=== PATIENT | male | born 1955 | race Caucasian/White ===

== ENCOUNTER 2019-03-13 06:05 | Day surgery (SDC) | payer OTHER ==
[~2019-03-13] VITALS: Ht 185.4 cm; Wt 84.4 kg
[2019-03-13] VITALS (16 sets, daily range): BP systolic 104–146; BP diastolic 65–94; PULSE 50–62; RESP 12–27; Ht 185.4 cm; Wt 84.4 kg
[~2019-03-13 06:05] MED LIST: DIAZ10TA4 PO; HYDR-580; TEMA15CA PO; VICES PO; [UNRECOGNIZED DRUG - REMARK]
--- NOTE | 2019-03-13 07:15 | PREAC ---
Date/Time of Note Date/Time of Note DATE: 03/13/19 TIME: 07:13 Anesthesia Eval and Record Evaluation Time Pre-Procedure Interview DATE: 03/13/19 TIME: 07:13 Age 63 Sex male NPO: 8 hrs Preoperative diagnosis neck mass, left arm Planned procedure excision post neck mass and left arm Past Medical History Past Medical History: None Surgery & Anesthesia Issues No known issue Meds Anticoagulation: No Beta Gibson within 24 hr: No Reason Beta Gibson not given: Pt. not on B-Gibson Reported Medications Acetaminophen/Hydrocodone (Vicodin Es) 1 Tab Tab, 1 TAB PO QID PRN 06/01/11 [Marvana] No Conflict Check 06/01/11 Temazepam* (Temazepam*) 15 Mg Capsule, 15 MG PO HS 04/16/11 Diazepam* (Diazepam*) 10 Mg Tablet, 10 MG PO DAILY 04/16/11 Hydrocodone Bit-Acetaminophen (Phillips) 1 Tab Tablet 12/23/10 Meds reviewed: Yes Allergies Coded Allergies: ibuprofen (Unverified Allergy, Unknown, ABD CRAMPS, 03/13/19) Allergies Reviewed: Yes Labs/Studies Labs Reviewed: Reviewed by anesthesiologist test: N/A Studies: ECG (sr), CXR (nl) Pre-procedure Exam Last vitals Vital Signs Date Temp Pulse Resp B/P (MAP) Pulse Ox O2 O2 Flow FiO2 Time Delivery Rate 03/13/19 97.5 57 18 116/75 96 Room Air 07:06 (89) Airway: Adequate mouth opening Mallampati: Mallampati I Teeth: Normal Lung: Normal Heart: Normal ASA Physical Status ASA physical status: 1 Emergency: None Planned Anesthetic General/MAC: LMA Planned Pain Management Parenteral pain med Pre-operative Attestations Prior to commencing anesthesia and surgery, the patient was re-evaluated, there was verification of: *The patient's identity *The results of appropriate recent lab work and preoperative vital signs *The above evaluation not changing prior to induction *Anesthetic plan, risk benefits, alternative and complications discussed with patient/family; questions answered; patient/family understands, accepts and wishes to proceed. PATRICK OVALLES MD Mar 13, 2019 07:15
[2019-03-13] MEDS ORDERED: MIDAZOLAM 1 MG/ML 2 ML INJ ONE (07:26)
[2019-03-13] MEDS ORDERED: METOCLOPRAMIDE 10 MG INJ ONE (07:26)
[2019-03-13] MEDS ORDERED: PROPOFOL 20 ML ONE ×2 (07:26→07:46)
[2019-03-13] MEDS ORDERED: CEFAZOLIN 1 GM INJ ONE (07:26)
[2019-03-13] MEDS ORDERED: ONDANSETRON 4 MG INJ ONE (07:26)
[2019-03-13] MEDS ORDERED: FENTAnyl 50 MCG/ML VIAL ONE (07:26)
[2019-03-13] MEDS ORDERED: DESFLURANE 15 MIN ONE (07:26)
[2019-03-13] MEDS ORDERED: BUPIVACAINE 0.25% (MPF) 30 ML INJ ONE (07:29)
[2019-03-13] MEDS ORDERED: DIPHENHYDRAMINE 50 MG INJ IV PRN (07:30)
[2019-03-13] MEDS ORDERED: FENTAnyl 50 MCG/ML VIAL IV PRN ×2 (07:30)
[2019-03-13] MEDS ORDERED: MEPERIDINE 25 MG INJ IV PRN (07:30)
[2019-03-13] MEDS ORDERED: HYDROmorphONE 1 MG/5 ML IV SYRINGE IV PRN ×2 (07:30)
[2019-03-13] MEDS ORDERED: OXYCODONE/ACETAMINOPHEN (5/325) TAB PO PRN ×2 (07:30)
[2019-03-13] MEDS ORDERED: ONDANSETRON 4 MG INJ IV PRN (07:30)
[2019-03-13] MEDS: HYDROmorphONE 1 MG/5 ML IV SYRINGE IV PRN ×2 (08:21→08:28)
--- NOTE | 2019-03-13 08:25 | OPR ---
Date/Time of Note Date/Time of Note DATE: 03/13/19 TIME: : Operative Report Procedure Date: Mar 13, 2019 Preoperative Diagnosis skin cancer Postoperative Diagnosis same Operation/Procedure Performed 1. wide local excision of left arm tumor 4 cm x 3 cm 2. localized adjacent tissue transfer with the use of skin flaps 12 sq cm defect of left arm 3. wild local excision of upper back tumor 6 cm x 4 cm 4. localized adjacent tissue transfer with the use of skin flaps 24 sq cm defect of the back 5. therapeutic injection of subcutaneous local anesthesia Surgeon see signature line Awake Overnight Monitor none Anesthesia Type: general Estimated Blood Loss: 0 - 10 ml's Transfusion none Specimen left arm tumor back tumor Grafts/Implants none Complications none Pt Condition Post Procedure: stable Indications This is a 63-year-old male with left arm tumor and a back tumor. 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 Clinically these features have similar features with pearly borders and injected skin lesions. He is here for excision of these tumors. Risks alternatives benefits and personal were discussed the patient. Potential complications including but not limited to bleeding infection change in the contour of the skin pain scarring possibly needing additional surgeries. Patient expressed understanding and consents to the operation. Procedure Description In the preop area the 2 lesions were identified and marked and verified with the patient. Patient was then taken to the OR and prepped and draped in usual sterile fashion. Surgical time was performed. IV antibiotics given. Left arm lesion was addressed initially. Elliptical incision with generous margins were made with a 15 blade. Dissection with cautery was carried onto the full-thickness of the skin and into the subcutaneous tissues. Lesion was resected. Good hemostasis status. Due to tissue defect localization just transfer with these of skin flaps were performed. Multilayer closed with interrupted 3-0 Vicryl and skin misty. Attention was then paid to the back lesion. 15 blade was used to make elliptical incision around the lesion with generous margins. Dissection with cautery skin onto the deep subcutaneous tissues and and the tumor was excised. Good hemostasis status. Due to tissue defect localization just transfer with use of skin flaps performed. Multilayer closed with interrupted 3-0 Vicryl and skin misty. Therapeutic subcutaneous local anesthesia was injected throughout both incision sites. Dry dressings were applied. Amelia SULLIVAN Mar 13, 2019 08:25
[2019-03-13] MEDS ORDERED: CEFAZOLIN 2 GM/50 ML (PMX) 50 ML IVPB SCH (08:30)
[2019-03-13] MEDS ORDERED: SOD CHLORIDE 0.9% 1,000 ML IV ONE (08:30)
[2019-03-13] MEDS ORDERED: HYDROCODONE/APAP (5/325) TAB PO ONE (08:30)
[2019-03-13] MEDS: FENTAnyl 50 MCG/ML VIAL IV PRN ×2 (08:54→09:05)
--- NOTE | 2019-03-13 14:34 | PAC ---
Date/Time of Note Date/Time of Note DATE: 03/13/19 TIME: 14:34 Post-Anesthesia Notes Post-Anesthesia Note Last documented vital signs Vital Signs Date Temp Pulse Resp B/P (MAP) Pulse Ox O2 O2 Flow FiO2 Time Delivery Rate 03/13/19 98.4 11:04 03/13/19 98.4 53 18 131/80 95 09:30 (97) 03/13/19 Room Air 09:17 Activity: WNL Respiratory function: WNL Cardiovascular function: WNL Mental status: Baseline Pain reasonably controlled: Yes Hydration appropriate: Yes Nausea/Vomiting absent: No PATRICK OVALLES MD Mar 13, 2019 14:34
== END 2019-03-13 10:00 | disposition home or self-care (01) ==
LOC: SDS 06:05
PROVIDERS: ATTEND Surgery
DX: C44.619 Basal cell carcinoma of skin of left upper limb, including shoulder (principal); C44.519 Basal cell carcinoma of skin of other part of trunk
CPT/HCPCS: 14001; 14021; 88307; J0690; J1170; J2250; J2405; J2765; J3010; Z7512; Z7610

== ENCOUNTER 2019-03-22 07:50 | Day surgery (SDC) | payer OTHER ==
[~2019-03-22] VITALS: Ht 185.4 cm; Wt 85.3 kg
[~2019-03-22 07:50] MED LIST changes: -HYDR-580; -TEMA15CA PO; -VICES PO; -[UNRECOGNIZED DRUG - REMARK]
[2019-03-22 08:25] VITALS: Ht 185.4 cm; Wt 85.3 kg
[2019-03-22] MEDS ORDERED: PROPOFOL 40 ML ONE (09:00)
[2019-03-22] MEDS ORDERED: LIDOCAINE 100 MG SYRINGE ONE (09:00)
[2019-03-22] MEDS ORDERED: FENTAnyl 50 MCG/ML VIAL ONE ×2 (09:01→10:12)
[2019-03-22 09:02] VITALS: BP 116/73; PULSE 60; RESP 18
[2019-03-22 10:16] VITALS: BP 177/93; PULSE 64; RESP 20
[2019-03-22 10:36] VITALS: BP 148/79; PULSE 52; RESP 18
== END 2019-03-22 11:41 | disposition home or self-care (01) ==
LOC: GIL 07:50
PROVIDERS: ATTEND Internal Medicine Gastroenterology
DX: D12.5 Benign neoplasm of sigmoid colon (principal); D12.2 Benign neoplasm of ascending colon; D12.4 Benign neoplasm of descending colon; D12.3 Benign neoplasm of transverse colon; K20.8 Other esophagitis; K57.30 Diverticulosis of large intestine without perforation or abscess without bleeding
CPT/HCPCS: 43239; 45385; 88305; 88312; 88313; J2001; J3010; Z7610